=== PATIENT | female | born 1975 | race Caucasian/White ===

== ENCOUNTER 2017-06-17 13:35 | Emergency (ER) | payer OTHER ==
[~2017-06-17] VITALS: Ht 172.7 cm; Wt 114.5 kg
[~2017-06-17 13:35] MED LIST: CYCLOBENZAPRINE10 MG PO; DESYREL100 MG PO; LAMICTAL200 MG PO; PROTONIX40 MG PO; RANITIDINE HCL300 M1 PO; RISPERDAL1 MG PO; TRAMADOL HCL50 MG PO; ZESTRIL20 MG PO; ZOLOFT25 MG PO
[2017-06-17 14:47] LABS: HEMATOCRIT 43.1 % (36.0-46.0); MCHC 33.2 G/DL (30.0-36.0); MCV 93.5 FL (83-99); RBC DIS.WIDTH-CV 13.6 % (11.8-14.6); RBC DIS.WIDTH-SD 46.5 % (39-53); RED BLOOD COUNT 4.61 M/uL (3.80-5.20); WHITE BLOOD COUNT 13.7 K/uL (4.1-10.2)
[2017-06-17 14:57] LABS: CHLORIDE 103 mEq/L (99-109); POTASSIUM 4.4 mEq/L (3.7-5.4); SODIUM 139 mEq/L (136-147)
[2017-06-17 14:59] LABS: GLUCOSE 123 mg/dL (70-99)
[2017-06-17 15:00] LABS: ANION GAP 11 MEQ/L (2-14)
[2017-06-17 15:03] LABS: GFR ESTIMATE (CALCULATED) > 59 mL/min/
[2017-06-17 15:04] LABS: UREA NITROGEN (BUN) 19 mg/dL (9-23)
[2017-06-17 15:10] LABS: TROP-I INTERPRETATION NEGATIVE; TROPONIN-I < 0.01 ng/mL (0.0-0.30)
[2017-06-17 15:53] LABS: MEAN PLAT.VOLUME 10.8 uM^3 (9.5-12.4); PLAT.SUFFICIENCY INCREASED; PLATELET COUNT 393 K/uL (156-360)
[2017-06-17] MEDS ORDERED: BENADRYL50 MG PO (15:59)
[2017-06-17] MEDS ORDERED: INDOCIN50 MG PO (15:59)
[2017-06-17 16:18] VITALS: BP 142/85
== END 2017-06-17 16:18 | disposition home or self-care (01) ==
LOC: EME 13:35
DX: R07.9 Chest pain, unspecified (principal); R21 Rash and other nonspecific skin eruption; F32.9 Major depressive disorder, single episode, unspecified; Z86.73 Personal history of transient ischemic attack (TIA), and cerebral infarction without residual deficits; F17.200 Nicotine dependence, unspecified, uncomplicated
CPT/HCPCS: 71020; 80048; 84484; 85027; 93005; 99281; 99282

== ENCOUNTER 2017-10-24 15:30 | Emergency (ER) | payer OTHER ==
[~2017-10-24] VITALS: Ht 172.7 cm; Wt 113.5 kg
[~2017-10-24 15:30] MED LIST changes: +BENADRYL50 MG PO; +INDOCIN50 MG PO
[2017-10-24] MEDS ORDERED: AUGMENTIN875 MG PO (17:45)
[2017-10-24 17:59] VITALS: BP 151/93
== END 2017-10-24 18:18 | disposition home or self-care (01) ==
LOC: EME 15:30
DX: S91.331A Puncture wound without foreign body, right foot, initial encounter (principal); W55.01XA Bitten by cat, initial encounter; Y93.K1 Activity, walking an animal; Z20.3 Contact with and (suspected) exposure to rabies; Z23 Encounter for immunization; Z29.14 Encounter for prophylactic rabies immune globulin; F17.200 Nicotine dependence, unspecified, uncomplicated
CPT/HCPCS: 99281; 99284

== ENCOUNTER 2017-10-28 11:21 | Emergency (ER) | payer OTHER ==
[~2017-10-28] VITALS: Ht 172.7 cm; Wt 113.0 kg
[~2017-10-28 11:21] MED LIST changes: +AUGMENTIN875 MG PO
[2017-10-28 16:12] VITALS: BP 147/87
== END 2017-10-28 16:17 | disposition home or self-care (01) ==
LOC: EME 11:21
PROC: 3E0234Z Introduction of Serum, Toxoid and Vaccine into Muscle, Percutaneous Approach (ICD-10-PCS; principal; 2017-10-28)
DX: Z20.3 Contact with and (suspected) exposure to rabies (principal); Z29.14 Encounter for prophylactic rabies immune globulin; I10 Essential (primary) hypertension; F31.9 Bipolar disorder, unspecified; F17.200 Nicotine dependence, unspecified, uncomplicated
CPT/HCPCS: 99281; 99284

== ENCOUNTER 2017-10-30 07:38 | Emergency (ER) | payer OTHER ==
[~2017-10-30] VITALS: Ht 172.7 cm; Wt 113.8 kg
[2017-10-30 07:42] VITALS: BP 123/70
== END 2017-10-30 10:22 | disposition home or self-care (01) ==
LOC: EME 07:38
PROC: 3E0234Z Introduction of Serum, Toxoid and Vaccine into Muscle, Percutaneous Approach (ICD-10-PCS; principal; 2017-10-30)
DX: Z20.3 Contact with and (suspected) exposure to rabies (principal); Z23 Encounter for immunization
CPT/HCPCS: 99281; 99283

== ENCOUNTER 2018-03-29 13:09 | Day surgery (SDC) | payer OTHER ==
[~2018-03-29] VITALS: Ht 172.7 cm; Wt 77.1 kg
[~2018-03-29 13:09] MED LIST changes: +TYLENOL WITH C1 EACH PO
== END 2018-03-29 14:35 | disposition home or self-care (01) ==
LOC: PAIN 13:09 → SDC 13:30 → PAIN 13:30
DX: M47.816 Spondylosis without myelopathy or radiculopathy, lumbar region (principal); M51.36 Other intervertebral disc degeneration, lumbar region; G89.29 Other chronic pain; M54.5 Low back pain; Z87.891 Personal history of nicotine dependence; M17.10 Unilateral primary osteoarthritis, unspecified knee; F31.9 Bipolar disorder, unspecified; K21.9 Gastro-esophageal reflux disease without esophagitis; I10 Essential (primary) hypertension; I25.2 Old myocardial infarction
CPT/HCPCS: J1030; J3010; S0020

== ENCOUNTER 2018-04-05 10:19 | Day surgery (SDC) | payer OTHER ==
[~2018-04-05] VITALS: Ht 172.7 cm; Wt 77.1 kg
== END 2018-04-05 15:04 | disposition home or self-care (01) ==
LOC: PAIN 10:19 → SDC 14:24 → PAIN 14:31
PROC: BR161ZZ Fluoroscopy of Lumbar Facet Joint(s) using Low Osmolar Contrast (ICD-10-PCS; principal; 2018-04-05)
PROC: 3E0T3TZ Introduction of Destructive Agent into Peripheral Nerves and Plexi, Percutaneous Approach (ICD-10-PCS; principal; 2018-04-05)
DX: M47.816 Spondylosis without myelopathy or radiculopathy, lumbar region (principal); M51.36 Other intervertebral disc degeneration, lumbar region; M79.1 Myalgia; G89.29 Other chronic pain; I10 Essential (primary) hypertension; E11.9 Type 2 diabetes mellitus without complications; E78.5 Hyperlipidemia, unspecified; K21.9 Gastro-esophageal reflux disease without esophagitis; F17.200 Nicotine dependence, unspecified, uncomplicated; Z79.891 Long term (current) use of opiate analgesic; Z79.84 Long term (current) use of oral hypoglycemic drugs
CPT/HCPCS: J1030; J2250; S0020